=== PATIENT | female | born 1965 | race Caucasian/White ===

== ENCOUNTER 2021-01-20 16:41 | Inpatient (IN) | payer OTHER, SELFPAY ==
[~2021-01-20] VITALS: Ht 170.2 cm; Wt 95.7 kg
[2021-01-20 20:46] VITALS: BP_SYST 155
[2021-01-20 21:00] VITALS: BP_SYST 137
[2021-01-20] MEDS ORDERED: ROSU20TA2 PO (21:20)
[2021-01-20] MEDS ORDERED: ONDA4TAB5 PO (21:20)
[2021-01-20] MEDS ORDERED: SERT25TA PO (21:20)
[2021-01-20] MEDS ORDERED: IRON1CAP18 PO (21:20)
[2021-01-20] MEDS ORDERED: NEU300 PO (21:20)
[2021-01-20] MEDS ORDERED: ASPI-858 PO (21:20)
[2021-01-20] MEDS ORDERED: FAMO20TA8 PO (21:20)
[2021-01-20] MEDS ORDERED: NOR10 PO (21:20)
--- NOTE | 2021-01-20 21:30 | NUR ---
Pagegema Ma s/w Melissa
[2021-01-20] MEDS ORDERED: ONDANSETRON HCL 4 MG/2 ML VIAL IVP PRN (21:45)
--- NOTE | 2021-01-20 22:05 | NUR ---
ADMIT NOTE Received pt from ER to the floor with a diagnosis of HYPERVOLEMIA. Admission process initiated. patient oriented to pain management, safety and call light-teach back done procedures explained FAMILY here @ the bedside personal belongings list completed orders carried out .
--- NOTE | 2021-01-20 23:05 | NUR ---
SPOKE WITH DR MEGHA LEIJA , NEW ORDERS OBTAINED .
[2021-01-20] MEDS: ATORVASTATIN 20 MG TABLET PO SCH (23:20)
[2021-01-20] MEDS: INSULIN REGULAR, HUMAN 100 UNITS/ML, 10 ML VIAL (humuLIN R) SUBCUT PRN (23:21)
[2021-01-20] MEDS: GABAPENTIN 300 MG CAPSULE PO SCH (23:22)
[2021-01-20] MEDS: FUROSEMIDE 40 MG/4 ML VIAL IVP SCH (23:22)
[2021-01-21 01:00] VITALS: BP_SYST 147
--- NOTE | 2021-01-21 02:38 | NUR ---
COVID NASAL SWAB , RAPID COLLECTED & SENT TO LAB .
--- NOTE | 2021-01-21 05:09 | NUR ---
Consultation Paged Reason for Consultation: HYPERVOLEMIA Was consult called: Y Person who was notified: Jackie Consulting Physician: Dr. Waldrop Ordering Physician: Dr. Ma
[2021-01-21 07:34] LABS: BASOPHILS % (AUTO) 0.5 % (0.0-2.0); EOSINOPHILS # (AUTO) 0.3 K/uL (0.0-0.4); EOSINOPHILS % (AUTO) 4.7 % (0.0-4.0); HEMOGLOBIN 7.4 g/dL (12.0-16.0); LYMPHOCYTES # (AUTO) 1.7 K/uL (1.0-5.5); LYMPHOCYTES % (AUTO) 24.5 % (20.5-51.5); MEAN CORPUSCULAR HEMOGLOBIN 29 pg (27-31); MEAN CORPUSCULAR HGB CONC 34 % (32-36); MEAN CORPUSCULAR VOLUME 86 fL (79.0-98.0); MONOCYTES # (AUTO) 0.4 K/uL (0.0-1.0); MONOCYTES % (AUTO) 5.7 % (1.7-9.3); NEUTROPHILS # (AUTO) 4.5 K/uL (1.8-7.7); NEUTROPHILS % (AUTO) 64.6 % (40.0-70.0); PLATELET COUNT (AUTO) 249 K/uL (130-430); RED BLOOD CELL COUNT(AUTO) 2.57 MIL/uL (4.2-6.2); RED CELL DISTRIBUTION WIDTH 14.1 % (9.0-15.0)
[2021-01-21 07:56] VITALS: BP_SYST 163
[2021-01-21 08:32] LABS: ALBUMIN 2.6 g/dL (3.4-4.8); CALCIUM 7.9 mg/dL (8.4-11.0); CREATININE 3.91 mg/dL (0.55-1.30); POTASSIUM 4.4 mmol/L (3.5-5.1); TOTAL BILIRUBIN 0.2 mg/dL (0.0-1.0)
[2021-01-21] MEDS: FUROSEMIDE 40 MG/4 ML VIAL IVP SCH ×3 (08:46→20:34)
[2021-01-21] MEDS: ASPIRIN 325 MG TABLET PO SCH (08:47)
[2021-01-21] MEDS: GABAPENTIN 300 MG CAPSULE PO SCH ×3 (08:47→20:15)
[2021-01-21] MEDS: FAMOTIDINE 20 MG TABLET PO SCH (08:47)
[2021-01-21] MEDS: SERTRALINE HCL 50 MG TABLET PO SCH (08:48)
[2021-01-21] MEDS ORDERED: amLODIPine BESYLATE 10 MG TABLET PO SCH (09:00)
--- NOTE | 2021-01-21 09:46 | NUR ---
CONSULTATION PAGED/CALLED Reason for Consultation: [] FLUID OVERLOAD Person Who was Notified: [] JARRELL Consulting Physician: [] DR PRADEEP PORRAS Purchase Order Checker Specialty: [] ACCOUNT RETENTION REPRESENTATIVE Ordering Physician: [] DR CLEVELAND
[2021-01-21] MEDS: INSULIN REGULAR, HUMAN 100 UNITS/ML, 10 ML VIAL (humuLIN R) SUBCUT PRN ×3 (11:48→20:36)
[2021-01-21] MEDS ORDERED: hydrALAZINE HCL 25 MG TABLET PO PRN (12:00)
--- NOTE | 2021-01-21 14:58 | NUR ---
alert, oriented, appropriate. On ra when seen this am, sat well, 96% .No complaint of sob, denied dyspnea. both lower extremities with noticeable swelling. On Lasix bid daily,per attending , strict I and O initiated. patient made aware so we can get correct measurements of her urine and po intake.
[2021-01-21 17:42] VITALS: BP_SYST 152
--- NOTE | 2021-01-21 18:56 | NUR ---
h & H TRENDING DOWN TODAY 7.07/01. ATTENDING MADE AWARE, NO NEW ORDERS
[2021-01-21 19:30] VITALS: BP_SYST 156
--- NOTE | 2021-01-21 19:30 | NUR ---
INITIAL NOTE AT INITIAL ASSESSMENT, PATIENT IS RESTING IN BED, STABLE, NO SIGNS OF RESPIRATORY DISTRESS. PATIENT VERBALIZES NO PAIN. PLAN OF CARE FOR THE EVENING IS COMMUNICATED WITH THE PATIENT. PATIENT DEMONSTRATES CORRECT USAGE OF CALL LIGHT AT THIS TIME. BED IS LOCKED, ALARMED, AND AT THE LOWEST LEVEL. FALL SAFETY EDUCATION PROVIDED. FALL, SAFETY, AND RESPIRATORY PRECAUTIONS WILL BE TAKEN THROUGHOUT THE SHIFT.
[2021-01-21] MEDS: CARVEDILOL 12.5 MG TABLET (COREG) PO SCH (20:15)
[2021-01-21] MEDS: ATORVASTATIN 20 MG TABLET PO SCH (20:15)
--- NOTE | 2021-01-21 20:35 | NUR ---
MED PASS NOTE BLOOD SUGAR CHECK AT THIS TIME REQUIRES INSULIN PER SSI ORDERED BY MD. SCHEDULED MEDICATIONS GIVEN AT THIS TIME, PATIENT TOLERATED WELL. CALL LIGHT IS PLACED WITHIN REACH. BED IS LOCKED, ALARMED, AND AT THE LOWEST LEVEL.
--- NOTE | 2021-01-22 00:29 | NUR ---
ROUNDS PATIENT IS RESTING IN BED, STABLE, NO SIGNS OF RESPIRATORY DISTRESS. CALL LIGHT IS WITHIN REACH. BED IS LOCKED, ALARMED, AND AT THE LOWEST LEVEL.
--- NOTE | 2021-01-22 06:30 | NUR ---
CLOSING NOTE PATIENT SLEPT WELL THROUGHOUT THE SHIFT, NO SHORTNESS OF BREATH NOTED. AT THIS TIME, PATIENT IS RESTING IN BED, STABLE, NO SIGNS OF RESPIRATORY DISTRESS. CALL LIGHT IS WITHIN REACH. BED IS LOCKED, ALARMED, AND AT THE LOWEST LEVEL. FALL, SAFETY, AND RESPIRATORY PRECAUTIONS HAVE BEEN TAKEN THROUGHOUT THE SHIFT. WILL CONTINUE TO MONITOR UNTIL SHIFT REPORT IS GIVEN AT BEDSIDE TO AM NURSE.
[2021-01-22 08:00] VITALS: BP_SYST 152
[2021-01-22 08:00] LABS: BASOPHILS % (AUTO) 0.7 % (0.0-2.0); EOSINOPHILS # (AUTO) 0.3 K/uL (0.0-0.4); EOSINOPHILS % (AUTO) 3.9 % (0.0-4.0); HEMATOCRIT 23.3 % (36-48); HEMOGLOBIN 7.9 g/dL (12.0-16.0); LYMPHOCYTES # (AUTO) 1.9 K/uL (1.0-5.5); LYMPHOCYTES % (AUTO) 24.9 % (20.5-51.5); MEAN CORPUSCULAR HEMOGLOBIN 29 pg (27-31); MEAN CORPUSCULAR HGB CONC 34 % (32-36); MEAN CORPUSCULAR VOLUME 85 fL (79.0-98.0); MONOCYTES # (AUTO) 0.4 K/uL (0.0-1.0); MONOCYTES % (AUTO) 5.2 % (1.7-9.3); NEUTROPHILS # (AUTO) 4.9 K/uL (1.8-7.7); NEUTROPHILS % (AUTO) 65.3 % (40.0-70.0); PLATELET COUNT (AUTO) 267 K/uL (130-430); RED BLOOD CELL COUNT(AUTO) 2.73 MIL/uL (4.2-6.2); RED CELL DISTRIBUTION WIDTH 14.3 % (9.0-15.0); WHITE BLOOD COUNT (AUTO) 7.4 K/uL (4.8-10.8)
[2021-01-22] MEDS: FAMOTIDINE 20 MG TABLET PO SCH (10:10)
[2021-01-22] MEDS: CARVEDILOL 12.5 MG TABLET (COREG) PO SCH ×2 (10:13→21:04)
[2021-01-22] MEDS: ASPIRIN 325 MG TABLET PO SCH (10:13)
[2021-01-22] MEDS: FUROSEMIDE 40 MG/4 ML VIAL IVP SCH ×3 (10:13→21:03)
[2021-01-22] MEDS: GABAPENTIN 300 MG CAPSULE PO SCH ×3 (10:13→21:04)
[2021-01-22] MEDS: SERTRALINE HCL 50 MG TABLET PO SCH (10:14)
[2021-01-22 10:22] LABS: ALBUMIN 2.7 g/dL (3.4-4.8); CALCIUM 8.1 mg/dL (8.4-11.0); CREATININE 3.91 mg/dL (0.55-1.30); POTASSIUM 4.3 mmol/L (3.5-5.1); TOTAL BILIRUBIN 0.3 mg/dL (0.0-1.0)
[2021-01-22] MEDS: INSULIN REGULAR, HUMAN 100 UNITS/ML, 10 ML VIAL (humuLIN R) SUBCUT PRN ×3 (12:37→21:21)
[2021-01-22 16:00] VITALS: BP_SYST 157
--- NOTE | 2021-01-22 17:00 | NUR ---
Dietitian Recommendations * [facility], [facility], 50 gm protein/day MARLENE, RD Please refer to Nutrition Assessment for details. Addendum: 01/22/21 at [address] Amended: Links added.
--- NOTE | 2021-01-22 19:15 | NUR ---
CHANGE OF SHIFT; endorsed by day shift. no acute distress. [place] pt. came in for Hypervolemia/CKD. call ligth within reach.
[2021-01-22 20:30] VITALS: BP_SYST 158
--- NOTE | 2021-01-22 20:30 | NUR ---
NOTES: pt. awake, alert. denies any discomfort. IV lock on left ac. 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 ambulates to the restroom. on strict I and O. VS checked. on room air.
[2021-01-22] MEDS: ATORVASTATIN 20 MG TABLET PO SCH (21:03)
--- NOTE | 2021-01-22 21:10 | NUR ---
NOTES: BS checked with sliding scale coverage, due medications given.
--- NOTE | 2021-01-23 00:30 | NUR ---
NOTES: pt. checked, starting to get some sleep. call light at bedside.
--- NOTE | 2021-01-23 03:11 | NUR ---
NOTES: condition observed. continue to monitor.
[2021-01-23 06:00] VITALS: BP_SYST 167
[2021-01-23] MEDS: INSULIN REGULAR, HUMAN 100 UNITS/ML, 10 ML VIAL (humuLIN R) SUBCUT PRN ×4 (06:39→21:21)
--- NOTE | 2021-01-23 06:51 | NUR ---
CLOSING NOTES; pt. awakened, ambulated to the restroom. pt. weighed in bed 212 lbs. IV lock intact. needs attended. for further care and assistance. will endrse to incoming shift. call light within reach.
--- NOTE | 2021-01-23 08:00 | NUR ---
OPENING NOTES: PATIENT EATING BREAKFAST. BREATHING EVEN AND NON LABORED TO RA. DENIES ANY DISCOMFORT AT THIS TIME. FALL, SAFETY AND ASPIRATION MEASURES REINFORCED. CALL LIGHT WITHIN REACH
[2021-01-23 08:05] VITALS: BP_SYST 154
[2021-01-23] MEDS: GABAPENTIN 300 MG CAPSULE PO SCH ×3 (09:46→20:56)
[2021-01-23] MEDS: ASPIRIN 325 MG TABLET PO SCH (09:46)
[2021-01-23] MEDS: SERTRALINE HCL 50 MG TABLET PO SCH (09:47)
[2021-01-23] MEDS: FAMOTIDINE 20 MG TABLET PO SCH (09:48)
[2021-01-23] MEDS: CARVEDILOL 12.5 MG TABLET (COREG) PO SCH (09:48)
[2021-01-23] MEDS: FUROSEMIDE 40 MG/4 ML VIAL IVP SCH ×3 (09:48→21:08)
[2021-01-23 09:54] LABS: ALBUMIN 2.5 g/dL (3.4-4.8); CREATININE 3.94 mg/dL (0.55-1.30); PHOSPHORUS 6.1 mg/dL (2.7-4.5); POTASSIUM 4.5 mmol/L (3.5-5.1); TOTAL BILIRUBIN 0.1 mg/dL (0.0-1.0)
[2021-01-23 12:01] VITALS: BP_SYST 123
[2021-01-23 12:32] LABS: BASOPHILS % (AUTO) 0.4 % (0.0-2.0); EOSINOPHILS # (AUTO) 0.3 K/uL (0.0-0.4); HEMATOCRIT 22.4 % (36-48); HEMOGLOBIN 7.6 g/dL (12.0-16.0); LYMPHOCYTES % (AUTO) 27.2 % (20.5-51.5); MEAN CORPUSCULAR HEMOGLOBIN 29 pg (27-31); MEAN CORPUSCULAR HGB CONC 34 % (32-36); MEAN CORPUSCULAR VOLUME 86 fL (79.0-98.0); MONOCYTES # (AUTO) 0.5 K/uL (0.0-1.0); MONOCYTES % (AUTO) 6.7 % (1.7-9.3); NEUTROPHILS # (AUTO) 4.5 K/uL (1.8-7.7); NEUTROPHILS % (AUTO) 61.7 % (40.0-70.0); PLATELET COUNT (AUTO) 247 K/uL (130-430); RED CELL DISTRIBUTION WIDTH 14.1 % (9.0-15.0); WHITE BLOOD COUNT (AUTO) 7.2 K/uL (4.8-10.8)
--- NOTE | 2021-01-23 15:38 | NUR ---
RN NOTES: PATIENT RESTING IN BED. NO S/S OF ACUTE NOTED. BED LOCKED, ALARM ON AND IN LOWEST POSITION. FALL AND SAFETY MEASURES RENDERED. CALL LIGHT WITHIN REACH.
[2021-01-23 16:01] VITALS: BP_SYST 128
--- NOTE | 2021-01-23 19:25 | NUR ---
CHANGE OF SHIFT; endorsed by day shift. no acute distress. call light within reach.
--- NOTE | 2021-01-23 19:30 | NUR ---
CLOSING NOTES: PATIENT RESTING IN BED. BREATHING EVEN AND NON LABORED AT RA. DENIES ANY DISCOMFORT. FALL AND SAFETY MEASURES PROVIDED. CALL LIGHT WITHIN REACH.
[2021-01-23 20:30] VITALS: BP_SYST 159
--- NOTE | 2021-01-23 20:30 | NUR ---
NOTES: pt. seem to be in good spirit. denies any shortness of breath. on room air. IV lock on left wrist. 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 ambulates to the restroom. both legs/feet still pretty swollen, pt. says its getting better. on strict I & O. education and teachings discussed with pt. regarding CHF.
[2021-01-23] MEDS: ATORVASTATIN 20 MG TABLET PO SCH (20:56)
[2021-01-23] MEDS: CARVEDILOL 25 MG TABLET (COREG) PO SCH (21:04)
--- NOTE | 2021-01-23 21:10 | NUR ---
NOTES: pt. medication given including IV Lasix. BS checked with sliding scale coverage.
--- NOTE | 2021-01-24 00:30 | NUR ---
NOTES: pt. checked and sleeping. call light at bedside.
--- NOTE | 2021-01-24 03:30 | NUR ---
NOTES: condition observed. continue to monitor.
[2021-01-24 05:34] VITALS: BP_SYST 148
[2021-01-24] MEDS: INSULIN REGULAR, HUMAN 100 UNITS/ML, 10 ML VIAL (humuLIN R) SUBCUT PRN ×2 (06:15→11:45)
--- NOTE | 2021-01-24 06:44 | NUR ---
CLOSING NOTES; still asleep. awakened for blood draw and BS checked. IV site patent. for possible discharge today, pt. anxious to go home. call light at bedside. will weigh after using restroom.
[2021-01-24 06:57] LABS: BASOPHILS # (AUTO) 0.1 K/uL (0.0-0.2); BASOPHILS % (AUTO) 0.7 % (0.0-2.0); EOSINOPHILS # (AUTO) 0.3 K/uL (0.0-0.4); EOSINOPHILS % (AUTO) 4.1 % (0.0-4.0); HEMOGLOBIN 7.2 g/dL (12.0-16.0); LYMPHOCYTES # (AUTO) 1.7 K/uL (1.0-5.5); LYMPHOCYTES % (AUTO) 24.9 % (20.5-51.5); MEAN CORPUSCULAR HEMOGLOBIN 29 pg (27-31); MEAN CORPUSCULAR HGB CONC 33 % (32-36); MEAN CORPUSCULAR VOLUME 86 fL (79.0-98.0); MONOCYTES # (AUTO) 0.4 K/uL (0.0-1.0); NEUTROPHILS # (AUTO) 4.5 K/uL (1.8-7.7); NEUTROPHILS % (AUTO) 64.3 % (40.0-70.0); PLATELET COUNT (AUTO) 230 K/uL (130-430); RED BLOOD CELL COUNT(AUTO) 2.53 MIL/uL (4.2-6.2); RED CELL DISTRIBUTION WIDTH 14.4 % (9.0-15.0)
--- NOTE | 2021-01-24 08:00 | NUR ---
OPENING NOTES: PATIENT EATING BREAKFAST. BREATHING EVEN AND NON LABORED TO RA. NO S/S OF ACUTE DISTRESS NOTED. FALL, SAFETY AND ASPIRATION MEASURES REINFORCED. CALL LIGHT WITHIN REACH
[2021-01-24 08:01] VITALS: BP_SYST 149
[2021-01-24 08:11] LABS: ALBUMIN 2.4 g/dL (3.4-4.8); CALCIUM 7.7 mg/dL (8.4-11.0); CREATININE 4.25 mg/dL (0.55-1.30); PHOSPHORUS 6.3 mg/dL (2.7-4.5); POTASSIUM 4.6 mmol/L (3.5-5.1); TOTAL BILIRUBIN 0.1 mg/dL (0.0-1.0)
[2021-01-24] MEDS ORDERED: EPOETIN ALFA-EPBX 4,000 UNITS/ML VIAL SUBCUT SCH (09:00)
[2021-01-24 09:38] LABS: HEMATOCRIT 21.7 % (36-48)
[2021-01-24] MEDS: GABAPENTIN 300 MG CAPSULE PO SCH (09:49)
[2021-01-24] MEDS: SERTRALINE HCL 50 MG TABLET PO SCH (09:49)
[2021-01-24] MEDS: ASPIRIN 325 MG TABLET PO SCH (09:49)
[2021-01-24] MEDS: CARVEDILOL 25 MG TABLET (COREG) PO SCH (09:49)
[2021-01-24] MEDS: FAMOTIDINE 20 MG TABLET PO SCH (09:49)
--- NOTE | 2021-01-24 09:50 | NUR ---
RN NOTES: SPOKE TO DR. CLEVELAND AND REPORTED THE LOW HGB AND HCT RESULT. NO NEW ORDER MADE.
[2021-01-24] MEDS: FUROSEMIDE 40 MG/4 ML VIAL IVP SCH (09:51)
[2021-01-24 12:00] VITALS: BP_SYST 138
[2021-01-24 14:47] VITALS: BP_SYST 139
[2021-01-24] MEDS ORDERED: COR25 PO (14:59)
[2021-01-24] MEDS ORDERED: FURO-149 PO (15:00)
--- NOTE | 2021-01-24 16:10 | NUR ---
D/C Patient Patient given medication reconciliation form and D/C instructions. Exit Care provided. Patient verbalized understanding. MD discussed with patient the results and treatment provided. Ambulatory with steady gait for discharge to home. Patient in stable condition, ID band removed. IV catheter removed, intact and dressing applied, no active bleeding. Rx of given. All belongings sent with patient.
[2021-01-25 01:06] LABS: HEPATITIS B SURFACE AG Negative (Negative); HEPATITIS C VIRUS AB <0.1 s/co ratio (0.0-0.9)
== END 2021-01-24 16:10 | disposition home or self-care (01) | DRG 291 ==
LOC: SMU 19:52 → STU 20:31
PROVIDERS: ADMIT Internal Medicine Hospice and Palliative Medicine; ATTEND Internal Medicine Hospice and Palliative Medicine
DX: I13.2 Hypertensive heart and chronic kidney disease with heart failure and with stage 5 chronic kidney disease, or end stage renal disease (principal); N18.6 End stage renal disease; E43 Unspecified severe protein-calorie malnutrition; N17.9 Acute kidney failure, unspecified; E11.22 Type 2 diabetes mellitus with diabetic chronic kidney disease; I50.9 Heart failure, unspecified; E87.70 Fluid overload, unspecified; E78.5 Hyperlipidemia, unspecified; E11.65 Type 2 diabetes mellitus with hyperglycemia; E83.52 Hypercalcemia; Z20.822 Contact with and (suspected) exposure to COVID-19; E83.42 Hypomagnesemia; E83.39 Other disorders of phosphorus metabolism; E88.09 Other disorders of plasma-protein metabolism, not elsewhere classified; Z88.8 Allergy status to other drugs, medicaments and biological substances; Z79.82 Long term (current) use of aspirin; Z79.899 Other long term (current) drug therapy; Z68.33 Body mass index [BMI] 33.0-33.9, adult; Z98.891 History of uterine scar from previous surgery
CPT/HCPCS: 36415; 80053; 82962; 83735; 83880; 84100; 85025; 86480; 86706; 86803; 87340; 93306; G0378; J1815; J1940; Q5106